=== PATIENT | male | born 1945 | race Caucasian/White ===

== ENCOUNTER 2022-05-02 07:38 | Emergency (ER) | payer OTHER, MEDICARE ==
--- NOTE | 2022-05-02 08:55 | RAD REPORT ---
EXAM DESCRIPTION: RAD - Hand Left 3 View - 05/02/2022 8:28 am CLINICAL HISTORY: SWELLING COMPARISON: None. FINDINGS: No fracture, dislocation or periosteal reaction noted. Soft tissue swelling is present ove r the dorsum aspect of the hand. Faint soft tissue calcifications are present along the dorsal margin of the wrist near the triquetrum and pisiform bones. There is similar soft tissue calcification arvin g the medial or ulnar side of the fifth MCP joint. The joint space is not narrowed. There does appear to be some concavity to the medial margin in the fifth metacarpal head. IP joint space narrowing seen without erosion. Mild marginal spurs are seen at some of the IP joints. No periarticular calcification. Arterial calcifications are present. IMPRESSION: No fracture or acute bone process seen. Soft tissue calcifications near the fifth MCP joint and the dorsal margin of the carpal bones could i ndicate gout. Correlation is needed with any laboratory or clinical findings.
--- NOTE | 2022-05-02 09:08 | ER ---
Nurse's Notes [facility] Name: Ramone Jean Age: 77 yrs Sex: Male : 1945 Arrival Date: 05/02/2022 Time: 07:43 Bed 11 Private MD: Diagnosis: Gout, unspecified;Left hand swelling Presentation: 05/02 07:48 Chief complaint: Patient states: on 04/30/2022 he started noticing his left hand ap3 swelling and believed he may have over worked it. he reports that he hand feels heavy and that it kept him up last night. patient presents with swelling his his left hand. Coronavirus screen: At this time, the client does not indicate any symptoms associated with coronavirus-19. Ebola Screen: No symptoms or risks identified at this time. Initial Sepsis Screen: Does the patient meet any 2 criteria? No. Patient's initial sepsis screen is negative. Does the patient have a suspected source of infection? Yes: Skin breakdown/wound. Risk Assessment: Do you want to hurt yourself or someone else? Patient reports no desire to harm self or others. Onset of symptoms was April 30, 2022. 07:48 Method Of Arrival: Ambulatory ap3 07:48 Acuity: AYAH 3 ap3 Triage Assessment: 07:54 General: Appears in no apparent distress. Behavior is calm, cooperative. Pain: ap3 Complains of pain in left hand Quality of pain is described as tightness Pain began 2-3 days ago. Neuro: Level of Consciousness is awake, alert, obeys commands, Oriented to person, place, time, situation. Cardiovascular: Patient's skin is warm and dry. Respiratory: Airway is patent Respiratory effort is even, unlabored, Respiratory pattern is regular, symmetrical. Musculoskeletal: Swelling present in left hand. Injury Description: unknown. Historical: - Allergies: 07:53 No Known Allergies; ap3 - Home Meds: 07:53 allopurinol Oral [Active]; unknown bp medication [Active]; unknown cholesterol ap3 medication [Active]; - PMHx: 07:53 Hypertensive disorder; Hypercholesterolemia; ap3 - Immunization history:: Client reports receiving the 2nd dose of the Covid vaccine. - Social history:: Smoking status: Patient denies any tobacco usage or history of. Patient uses alcohol, occasionally. Screenin:55 Abuse screen: Denies threats or abuse. Nutritional screening: No deficits noted. ap3 Tuberculosis screening: No symptoms or risk factors identified. 09:24 Fall Risk None identified. ap3 Assessment: 08:41 Reassessment: Patient and/or family updated on plan of care and expected duration. Pain ap3 level reassessed. Patient is alert, oriented x 3, equal unlabored respirations, skin warm/dry/pink. Vital Signs: 07:48 BP 105 / 57; Pulse 58; Resp 19; Temp 98.7; Pulse Ox 96% ; Weight 72.57 kg; Height 5 ft. ap3 5 in. (165.10 cm); 07:48 Body Mass Index 26.63 (72.57 kg, 165.10 cm) ap3 ED Course: 07:43 Patient arrived in ED. rg4 07:52 Mickie Caba MD is Attending Physician. sd2 07:53 Triage completed. ap3 07:55 Arm band placed on right wrist. ap3 08:30 XRAY Hand LEFT 3 View In Process Unspecified. EDIN 08:41 Sayda Ibarra, MARA is Primary Nurse. ap3 09:24 Patient has correct armband on for positive identification. Bed in low position. Call ap3 light in reach. Side rails up X 1. Pulse ox on. NIBP on. Door closed. Noise minimized. 09:24 No provider procedures requiring assistance completed. Patient did not have IV access ap3 during this emergency room visit. Administered Medications: 09:03 CANCELLED (Physician Discretion): Ketorolac 15 mg IVP once sd2 Medication: 09:24 VIS not applicable for this client. ap3 Outcome: 09:08 Discharge ordered by . sd2 09:24 Discharged to home ambulatory, with friend. ap3 09:24 Condition: good 09:24 Discharge instructions given to patient, friend, Instructed on discharge instructions, follow up and referral plans. medication usage, Demonstrated understanding of instructions, follow-up care, medications, Prescriptions given X 2. 09:24 Patient left the ED. ap3 Signatures: Dispatcher [employer] EDMS Devorah Weir rg4 Sayda Ibarra RN RN ap3 Mickie Caba MD MD sd2
--- NOTE | 2022-05-02 09:08 | EDPHYS ---
Physician Documentation [facility] Name: Ramone Jean Age: 77 yrs Sex: Male : 1945 Arrival Date: 05/02/2022 Time: 07:43 Bed 11 Private MD: ED Physician Mickie Caba HPI: 05/02 08:22 This 77 yrs old Male presents to ER via Ambulatory with complaints of Hand Injury, Hand sd2 Swelling. 08:22 77-year-old male presents with chief complaint of left hand swelling. He reports this sd2 started yesterday after he thought he overused it at work. He reports he also had a subjective fever yesterday that improved with Pedialyte and cooling himself down from working outside. His temp was at its highest 99.8 F. He denies any scrapes, abrasions or lacerations to that hand. He does endorse some redness and warmth that he is noted. He has also had decreased range of motion due to the swelling and had some pain yesterday but has since improved. Patient reports this is happened once in the past but he cannot recall what the issue was. He did take Motrin this morning which did help some with his pain. He is currently pain-free.. Historical: - Allergies: 07:53 No Known Allergies; ap3 - Home Meds: 07:53 allopurinol Oral [Active]; unknown bp medication [Active]; unknown cholesterol ap3 medication [Active]; - PMHx: 07:53 Hypertensive disorder; Hypercholesterolemia; ap3 - Immunization history:: Client reports receiving the 2nd dose of the Covid vaccine. - Social history:: Smoking status: Patient denies any tobacco usage or history of. Patient uses alcohol, occasionally. ROS: 08:22 Constitutional: Negative for fever, chills, and weight loss, Eyes: Negative for injury, sd2 pain, redness, and discharge, Cardiovascular: Negative for chest pain, palpitations, and edema, Respiratory: Negative for shortness of breath, cough, wheezing. MS/Extremity: Negative for injury and deformity. Positive for swelling and pain. Skin: Negative for injury, rash, and discoloration. Exam: 08:22 Constitutional: This is a well developed, well nourished patient who is awake, alert, sd2 and in no acute distress. Head/Face: Normocephalic, atraumatic. Chest/axilla: Normal chest wall appearance and motion. Nontender with no deformity. Cardiovascular: Regular rate and rhythm with a normal S1 and S2. No gallops, murmurs, or rubs. 2+ distal pulses. Respiratory: Lungs have equal breath sounds bilaterally, clear to auscultation and percussion. No rales, rhonchi or wheezes noted. No increased work of breathing, no retractions or nasal flaring. Skin: Warm, dry with normal turgor. Normal color with no rashes, no lesions, and no evidence of cellulitis. MS/ Extremity: Pulses equal, no cyanosis. Neurovascular intact. Limited range of motion with jewel supervisor strength testing due to swelling. Swelling noted to dorsal aspect of the hand with no significant swelling of the fingers. There is mild warmth to the area. 2+ RP pulses. Sensation intact. Able to move all fingers. Ambulatory without difficulty. Vital Signs: 07:48 BP 105 / 57; Pulse 58; Resp 19; Temp 98.7; Pulse Ox 96% ; Weight 72.57 kg; Height 5 ft. ap3 5 in. (165.10 cm); 07:48 Body Mass Index 26.63 (72.57 kg, 165.10 cm) ap3 MDM: 08:09 Patient medically screened. sd2 08:22 Differential diagnosis: Cellulitis, tenosynovitis, fracture, contusion among others. sd2 Data reviewed: vital signs, nurses notes. 09:04 Data reviewed: radiologic studies, plain films. Counseling: I had a detailed discussion sd2 with the patient and/or guardian regarding: the historical points, exam findings, and any diagnostic results supporting the discharge/admit diagnosis, radiology results, the need for outpatient follow up, to return to the emergency department if symptoms worsen or persist or if there are any questions or concerns that arise at home. Medical screen evaluation completed. [facility] emergency medical condition absent. ED course: Xray reviewed and consistent with possible gout. When patient questioned about this, he reports he has had gout in the past and that this tends to occur when he gets dehydrated. He is not currently on medication for this. Will start on colchicine and NSAIDs and patient to follow up with PCP to discuss long-term treatment such as allopurinol. Pt comfortable with plan for discharge and outpatient follow up. Verbalizes understanding of strict return precautions. . 05/02 08:08 Order name: XRAY Hand LEFT 3 View; Complete Time: 08:58 sd2 Administered Medications: 09:03 CANCELLED (Physician Discretion): Ketorolac 15 mg IVP once sd2 Disposition Summary: 05/02/22 09:08 Discharge Ordered Location: Home sd2 Problem: an acute exacerbation sd2 Symptoms: have improved sd2 Condition: Stable sd2 Diagnosis - Gout, unspecified sd2 - Left hand swelling sd2 Followup: sd2 - With: Private Physician - When: 2 - 3 days - Reason: Recheck today's complaints, Continuance of care, Re-evaluation by your physician Discharge Instructions: - Discharge Summary Sheet jmm - Gout sd2 - Low-Purine Eating Plan sd2 Forms: - Medication Reconciliation Form sd2 - Thank You Letter sd2 - Antibiotic Education sd2 - Prescription Opioid Use sd2 Prescriptions: - Colcrys 0.6 mg Oral tablet - take 1 tablet by ORAL route once daily Day 1: Oral: 1.2 mg at the first sign of sd2 flare, followed by 0.6 mg after 1 hour; Day 2 and thereafter: Oral: 0.6 mg once or twice daily until flare resolves; 30 tablet; Refills: 0, Product Selection Permitted - Ibuprofen 800 mg Oral Tablet - take 1 tablet by ORAL route every 8 hours As needed take with food; 30 tablet; sd2 Refills: 0, Product Selection Permitted Signatures: Dispatcher [employer] EDSayda Garrison RN RN ap3 Dunlop, Stephanie, MD MD sd2 Corrections: (The following items were deleted from the chart) 09:03 09:00 Ketorolac 15 mg IVP once ordered. sd2 sd2 09:08 09:01 CBC+H.LAB.BRZ ordered. EDMS EDMS 09:08 09:01 BASIC METABOLIC PANEL+C.LAB.BRZ ordered. EDMS EDMS 09:08 09:01 WESTERGREN SEDRATE+H.LAB.BRZ ordered. EDMS EDMS 09:08 09:01 C-REACTIVE PROTEIN+C.LAB.BRZ ordered. EDMS EDMS 09:08 09:01 URIC ACID+C.LAB.BRZ ordered. EDMS EDMS
[2022-05-03 13:33] VITALS: BP 105/57; TEMP 98.7; O2SAT 96
== END 2022-05-02 09:24 | disposition home or self-care (01) ==
LOC: ER 07:38
DX: M10.9 Gout, unspecified (principal); R22.32 Localized swelling, mass and lump, left upper limb
CPT/HCPCS: 99283